=== PATIENT | female | born 1970 | race Hispanic/Latino ===

== ENCOUNTER → 2022-02-18 | Outpatient (CLI) | payer BC | END | disposition home or self-care (01) | LOC: SHCH 08:07 | PROVIDERS: ATTEND Student in an Organized Health Care Education/Training Program | DX: R94.31 Abnormal electrocardiogram [ECG] [EKG] (principal); I10 Essential (primary) hypertension; E78.5 Hyperlipidemia, unspecified | CPT/HCPCS: 93306 ==